=== PATIENT | female | born 1990 | race Hispanic/Latino ===

== ENCOUNTER 2020-04-12 22:54 | Outpatient (CLI) | payer MEDICAID ==
[2020-04-13 01:02] VITALS: BP 123/73
[2020-04-13] MEDS ORDERED: LACTATED RINGERS 1,000 ML ONE (01:27)
[2020-04-13 01:37] LABS: Bacteria,Urine 2+ /HPF (Negative); Bilirubin,Urine NEG (Negative); Blood,Urine MOD (Negative); Color,Urine Yellow (Yellow); Mucus,Urine FEW /HPF; Protein,Urine <15 mg/dL mg/dL (Negative); Urobilinogen,Urine < 2.0 mg/dL (<2.0)
[2020-04-13] MEDS ORDERED: LACTATED RINGERS 1,000 ML IV SCH (02:00)
== END 2020-04-13 02:37 | disposition home or self-care (01) ==
LOC: TRG 22:54 → APU 22:55 → TRG 04-13 02:37
PROVIDERS: ATTEND Obstetrics & Gynecology
DX: O13.3 Gestational [pregnancy-induced] hypertension without significant proteinuria, third trimester (principal); O47.03 False labor before 37 completed weeks of gestation, third trimester; O99.333 Smoking (tobacco) complicating pregnancy, third trimester; F17.200 Nicotine dependence, unspecified, uncomplicated; Z3A.33 33 weeks gestation of pregnancy
CPT/HCPCS: 59025; 81001; 87086; 96360; J7120